=== PATIENT | female | born 1970 | race Asian ===

== ENCOUNTER 2018-03-24 20:31 | Emergency (ER) | payer MEDICAID, OTHER ==
[~2018-03-24] VITALS: Ht 154.9 cm; Wt 45.4 kg
--- NOTE | 2018-03-24 20:55 | NUR ---
admitted to er [id number] ambulatory from home c/o pain on r hand. dr valencia will see pt.
--- NOTE | 2018-03-24 21:53 | NUR ---
pt. in bed not in any distress.
--- NOTE | 2018-03-24 22:45 | NUR ---
colles padded splint applied on r hand as ordered.
[2018-03-24 22:54] VITALS: BP 128/80
--- NOTE | 2018-03-24 22:56 | NUR ---
Patient discharged to home in stable conditon. Written and verbal after care instructions given. Patient verbalizes understanding of instructions.
== END 2018-03-24 22:56 | disposition home or self-care (01) ==
LOC: ER 20:33
DX: S62.521A Displaced fracture of distal phalanx of right thumb, initial encounter for closed fracture (principal); X58.XXXA Exposure to other specified factors, initial encounter; Y93.89 Activity, other specified; Y92.89 Other specified places as the place of occurrence of the external cause; Y99.8 Other external cause status
CPT/HCPCS: 73130; A4663